=== PATIENT | male | born 2005 | race Two or more races ===

== ENCOUNTER 2025-05-05 09:39 | Day surgery (SDC) | payer OTHER, SELFPAY ==
--- OUTSIDE RECORDS SUMMARY | 2025-04-20 16:12 | XMS_ITS | Clinical Summary ---
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 Name Role Phone Unavailable Primary Care Provider Unavailabl e Social History Tobacco Use Types Packs/Day Years Used Date Smoking Tobacco: Never Assessed Sex and Gender Information Value Date Recorded Sex Assigned at Not on file Legal Sex Male 10:04 AM EDT Gender Identity Not on file Sexual Orientation Not on file Plan of Treatment Health Maintenance Due Date Last Done Comments Chlamydia and Gonorrhea Screening 2004 Depression Screening 2004 HIV Screening 2004 SDOH Screening 2004 Disability Screening 2004 Alcohol/Substance Use Screening 2016 Tobacco Screening 2016 Family Planning (PISQ) 12/25/2019 HPV Vaccines (1 - Male 3-dos e series) 12/25/2019 Meningococcal B Vaccine (1 o f 2 - Standard) 2020 Hepatitis C Screening 2022 DTaP/Tdap/Td Vaccines (1 - Tdap) 12/25/2023 Hepatitis B Vaccines (1 of 3 - 19+ 3-dose series) 12/25/2023 COVID-19 Vaccine (1 - 2023-2 5 season) 2024 Influenza Vaccine (#1) 2025 Zoster Vaccines (1 of 2) 2054 RSV Patients and Pa tients Aged 60 years or older (1 - 1-dose 75+ series) 12/25/2079 HIB Vaccines Aged Out No longer eligi ble based on patient's age to complete this topic Hepatitis A Vaccines Aged Out No long er eligible based on patient's age to complete this topic IPV Vaccines Aged Out No longer eligi ble based on patient's age to complete this topic Meningococcal Vaccine Aged Out No kain nelson eligible based on patient's age to complete this topic Pneumococcal Vaccine: Pediat rics (0 to 5 Years) and At-Risk Patients (6 to 49) Years Aged Out No longer eligible b ased on patient's age to complete this topic RSV under 20 months Aged Out No longe r eligible based on patient's age to complete this topic Rotavirus Vaccines Aged Out No longer eligible based on patient's age to complete this topic Insurance [employer]
[2025-05-03 10:53] VITALS: BMI 49.6
[2025-05-05] VITALS (7 sets, daily range): BP systolic 87–133; BP diastolic 41–76; PULSE 99–109; RESP 14–18; TEMP 36.7–37.3; O2SAT 93–98; BMI 50.3
[2025-05-05] MEDS: Lactated Ringers 1,000 ML 100 ML IVCONT (10:23)
--- NOTE | 2025-05-05 11:51 | P.CONAN_ITS ---
Documented by User: Karen Gallego NP 05/04/25 08:44 HPI - Anesthesia Eval Consult details Narrative: 19 yr old male for LEFT Lateral Rectus Eye Muscle Recession,LEFT Medial Rectus Resection Morbid obesity: BMI 49.6 [facility] Past Medical History Medical History BMI 45.0-49.9, adult Asthma Surgical History Surgical History Hx of eye surgery Hx of tonsillectomy Social History Social History (Updated 05/03/25 @ 10:56 by Gianna Hawthorne RN) Are you a primary child care group leader to a significant other at home: No Do you presently have visiting nurse or other home services: No Patient Tobacco Use Status: Never used Tobacco Use of substances other than those prescribed or required for medical reasons: No Have you been hit, kicked, punched, or otherwise hurt by someone within the past year? If so, by whom?: No Are you DNR?: No Advance Directives: No Advance Directives Information Provided: Yes Poor oral hygiene: No Meds Allergies Allergy/AdvReac Type Severity Reaction Status Date / Time No Known Allergies Allergy Verified 05/05/25 10:01 Home Medications ?Medication ?Instructions ?Recorded ?Confirmed ?Last Taken ?Type albuterol sulfate 90 mcg/actuation 2 puff inhalation Q 4-6H PRN 05/03/25 05/03/25 Unknown History aerosol inhaler (Ventolin HFA) Shortness Of Breath Or Wheezing Exam Height,Weight and Vital Signs: Height 5 ft 10 in Weight 156.943 kg Documented by User: Yanely Burden NP 05/04/25 09:42 HPI - Anesthesia Eval Consult details Narrative: 19 yr old male for LEFT Lateral Rectus Eye Muscle Recession,LEFT Medial Rectus Resection Medically optimized per PCP Morbid obesity: BMI 49.6 [facility] Past Medical History Medical History BMI 45.0-49.9, adult Asthma Surgical History Surgical History Hx of eye surgery Hx of tonsillectomy Social History Social History (Updated 05/03/25 @ 10:56 by Gianna Hawthorne RN) Are you a primary child care group leader to a significant other at home: No Do you presently have visiting nurse or other home services: No Patient Tobacco Use Status: Never used Tobacco Use of substances other than those prescribed or required for medical reasons: No Have you been hit, kicked, punched, or otherwise hurt by someone within the past year? If so, by whom?: No Are you DNR?: No Advance Directives: No Advance Directives Information Provided: Yes Poor oral hygiene: No Meds Allergies Allergy/AdvReac Type Severity Reaction Status Date / Time No Known Allergies Allergy Verified 05/05/25 10:01 Home Medications ?Medication ?Instructions ?Recorded ?Confirmed ?Last Taken ?Type albuterol sulfate 90 mcg/actuation 2 puff inhalation Q 4-6H PRN 05/03/25 05/03/25 Unknown History aerosol inhaler (Ventolin HFA) Shortness Of Breath Or Wheezing Assessment and Plan Assessment Anesthesia Assessment: Chart Reviewed Documented by User: Nilda Turcios DO 05/05/25 11:53 [facility] Past Medical History Medical History BMI 45.0-49.9, adult Asthma Family History Family history of problems with anesthesia: No Surgical History Surgical History Hx of eye surgery Hx of tonsillectomy History of Problems with Anesthesia: No Social History Social History (Updated 05/03/25 @ 10:56 by Gianna Hawthorne RN) Are you a primary child care group leader to a significant other at home: No Do you presently have visiting nurse or other home services: No Patient Tobacco Use Status: Never used Tobacco Use of substances other than those prescribed or required for medical reasons: No Have you been hit, kicked, punched, or otherwise hurt by someone within the past year? If so, by whom?: No Are you DNR?: No Advance Directives: No Advance Directives Information Provided: Yes Poor oral hygiene: No Meds Allergies Allergy/AdvReac Type Severity Reaction Status Date / Time No Known Allergies Allergy Verified 05/05/25 10:01 Home Medications ?Medication ?Instructions ?Recorded ?Confirmed ?Last Taken ?Type albuterol sulfate 90 mcg/actuation 2 puff inhalation Q 4-6H PRN 05/03/25 05/03/25 Unknown History aerosol inhaler (Ventolin HFA) Shortness Of Breath Or Wheezing Exam Exam Date and Time: 05/05/25 1150 Height,Weight and Vital Signs: Height 5 ft 10 in Weight 156.943 kg Vital Signs Temperature 98.3 F 05/05/25 10:22 Pulse Rate 105 H 05/05/25 10:22 Respiratory Rate 14 05/05/25 10:22 Blood Pressure 133/73 05/05/25 10:22 Pulse Oximetry 98 05/05/25 10:22 Oxygen Delivery Method Room Air 05/05/25 10:22 Temperature 98.3 F 05/05/25 10:22 Pulse Rate 105 H 05/05/25 10:22 Respiratory Rate 14 05/05/25 10:22 Blood Pressure 133/73 05/05/25 10:22 Pulse Oximetry 98 05/05/25 10:22 Oxygen Delivery Method Room Air 05/05/25 10:22 Airway Mallampati Class: II TM Dist: >3cm Neck ROM: Full Loose/Missing/Broken Teeth: No (patient denies any loose or broken teeth) Heart: S1S2 Lungs: CTAB Assessment and Plan Assessment Anesthesia Assessment: Anesthesia Plan Discussed and Chart Reviewed Final Anesthetic Review Family History of Problems with Anesthesia: No History of Problems with Anesthesia: No NPO: Yes ASA Class: II Final Preanesthetic Review: No Changes in Pt Med Stat, Meds/Allgs Chart Reviewed, Consent Obtained/Reviewed and Anes Risks/Benef Reviewed Patient Risk: Intermediate Procedure Risk: Low Anesthetic Plan Anesthetic Plan: MAC: and Agree w/ Assess. and Plan Disposition: Standard PACU
--- NOTE | 2025-05-05 14:33 | HO.OPHTHAL ---
Ophthalmology Operative Note Date of Service: 05/05/25 Narrative: Diagnosis exotropia. Postoperative diagnosis same. Procedures 1. Recession of left lateral rectus 9 mm 2. Resection of left medial rectus [address] Beyer. Anesthesia general. Complications none. The patient was brought to the operating room placed under general anesthesia. The left eye was prepped and draped in the usual sterile ophthalmic fashion. A lid speculum was placed in the eye and an incision was made at bare sclera in the inferotemporal fornix. The lateral rectus was hooked and secured with a double-armed Vicryl suture. It was disinserted from the globe and reattached to a position 9 mm behind the original insertion. Conjunctiva was closed with interrupted Vicryl sutures. An incision was then made down to bare sclera in the inferonasal fornix. The medial rectus was hooked and dissected free of its surrounding scar tissue. The muscle was approximately 11 mm behind the surgical limbus. The muscle was secured with a double-armed Vicryl suture proximally 1 mm above the insertion. The muscle was then disinserted from the globe and reattached to a position 5 mm from the surgical limbus. Conjunctiva was closed with interrupted Vicryl sutures. The patient was then awoken from general anesthesia and discharged to postoperative recovery in good condition.
== END 2025-05-05 14:05 | disposition home or self-care (01) ==
PROVIDERS: Visit Provider Ophthalmology
PROC: (CPT 67312; principal; 2025-05-05 12:20)
DX: H50.112 Monocular exotropia, left eye (principal); J45.909 Unspecified asthma, uncomplicated; E55.9 Vitamin D deficiency, unspecified; E66.813 Obesity, class 3; Z68.42 Body mass index [BMI] 45.0-49.9, adult; Z79.899 Other long term (current) drug therapy; Z98.890 Other specified postprocedural states
CPT/HCPCS: 67312; J0131; J0330; J1100; J1596; J2003; J2250; J2405; J2704; J3010